=== PATIENT | male | born 1995 | race Caucasian/White ===

== ENCOUNTER 2022-02-17 13:35 | Emergency (ER) | payer OTHER ==
[~2022-02-17] VITALS: Ht 172.7 cm; Wt 72.7 kg
[2022-02-17 16:36] VITALS: BP 122/72
== END 2022-02-17 16:35 | disposition home or self-care (01) ==
LOC: ED 13:35
DX: S80.01XA Contusion of right knee, initial encounter (principal); F17.210 Nicotine dependence, cigarettes, uncomplicated; Z28.310 Unvaccinated for COVID-19; W01.198A Fall on same level from slipping, tripping and stumbling with subsequent striking against other object, initial encounter; Y92.59 Other trade areas as the place of occurrence of the external cause; Y99.0 Civilian activity done for income or pay
CPT/HCPCS: 90715